=== PATIENT | female | born 1980 | race Two or more races ===

== ENCOUNTER 2024-06-21 12:49 | Emergency (ER) | payer MEDICAID, SELFPAY ==
[2024-06-21 13:46] VITALS: BP 144/90; PULSE 83; RESP 18; TEMP 37.2; O2SAT 99; BMI 36.3
--- NOTE | 2024-06-21 13:50 | XR_ITS ---
Examination: CT abdomen and pelvis without contrast. Coronal 3-D reconstructions. Sagittal 2-D reconstructions. Date and time of exam:June 21, 2024 1500 hours INDICATIONS: Right lower abdominal pain radiating to the back today CTDI: vol (mGy): 10.6 DLP: (mGycm): 605 Technique: Axial images of the abdomen have been obtained, 3 mm slice thickness Intravenous contrast material has not been administered. Low dose protocols were performed. One or more of the following dose reduction techniques were used; automated exposure control, adjustment of the mA and/or KV according to patient size, use of iterative reconstruction technique. Findings: No focal liver or splenic lesions Absent gallbladder No pancreatic or adrenal mass 3 mm upper pole right renal calculus No hydronephrosis or ureteral calculi Normal appendix No bowel obstruction Enlarged uterine body and fundus No bladder mass or bladder calculi IMPRESSION: 3 mm upper pole nonobstructing right renal calculus, no hydronephrosis or ureteral calculi Normal appendix Recommend pelvic sonography to assess enlarged uterine body and fundus
--- NOTE | 2024-06-21 13:51 | PD.EDRME ---
Rapid Medical Screening Exam RME Arrival date/time: 06/21/24 12:49 43-year-old female presents to the emergency department complaints of right flank pain Chief Complaint: Abdominal Pain Time Seen by Provider: 06/21/24 13:30 Vital signs: Vital Signs Temperature 99 F 06/21/24 13:46 Pulse Rate 83 06/21/24 13:46 Respiratory Rate 18 06/21/24 13:46 Blood Pressure 144/90 H 06/21/24 13:46 Pulse Oximetry (%) 99 06/21/24 13:46 Oxygen Delivery Method Room Air 06/21/24 13:46
[2024-06-21 14:22] LABS: Basophils # (Auto) 0.1 Thou/mm3 (0.0-0.2); Basophils % (Auto) 1 % (0-2.5); Eosinophils # (Auto) 0.2 Thou/mm3 (0.0-0.5); Eosinophils % (Auto) 2 % (0-10); Hematocrit 41.1 % (36.0-46.0); Hemoglobin 13.8 g/dL (12.0-16.0); Immature Granulocytes % (Auto) 0 % (0-0); Immature Granulocytes Auto 0.03 Thou/mm3 (0.00-0.00); Lymphocytes # (Auto) 2.4 Thou/mm3 (1.0-4.8); Lymphocytes % (Auto) 33 % (10-50); Mean Corpuscular HGB Conc 33.6 g/dl (31.0-37.0); Mean Corpuscular Hemoglobin 27.7 pg (25.0-35.0); Mean Corpuscular Volume 82 fL (80-100); Monocytes # (Auto) 0.6 Thou/mm3 (0.0-0.8); Monocytes % (Auto) 9 % (0-12); Neutrophils # (Auto) 3.9 Thou/mm3 (1.8-7.7); Neutrophils % (Auto) 55 % (37-80); Nucleated Red Blood Cell % 0 /100 WBC (0); Platelet Count 356 Thou/mm3 (140-440); RDW Standard Deviation 51.1 fL (36.4-46.3); Red Blood Count 4.99 Miln/mm3 (4.00-5.20); White Blood Count 7.2 Thou/mm3 (3.6-11.0)
[2024-06-21 14:25] LABS: Collection Type, Urine Clean Catch
[2024-06-21 14:28] LABS: HCG Qualitative,Urine Negative
[2024-06-21 14:35] LABS: Bilirubin,Urine Negative (Negative); Blood,Urine Trace (Negative); Clarity,Urine Clear (Clear/Hazy); Color,Urine Colorless (Lt Yel-Yel); Culture Indicated,Urine Not Indicated; Glucose, Urine Negative (Negative); Hyaline Casts,Urine < 1 /hpf (0-1); Ketones,Urine Negative (Negative); Leukocyte Esterase,Urine Positive (Negative); Nitrite,Urine Negative (Negative); PH,Urine 6.5 (5.0-7.0); Protein,Urine Negative (Neg - Trace); RBC,Urine 1 /hpf (0-3); Specific Gravity,Urine 1.009 (1.001-1.035); Squamous Epithelial Cell,Urine 6 /hpf (0-5); Urobilinogen,Urine Negative mg/dL (0.0-1.0); WBC,Urine 5 /hpf (0-5)
[2024-06-21 14:39] LABS: Alanine Aminotransferase 21 U/L (10-49); Albumin, Serum 4.6 gm/dL (3.5-5.0); Albumin/Globulin Ratio 1.8 (1.2-2.2); Alkaline Phosphatase 64 U/L (46-116); Anion Gap 11 (7-16); Aspartate Amino Transferase 19 U/L (0-34); BUN/Creatinine Ratio 13 Ratio (12-20); Bilirubin,Total 0.4 mg/dL (0.3-1.2); Blood Urea Nitrogen 9 mg/dL (9-23); Carbon Dioxide 22.5 mMol/L (20.0-31.0); Chloride 106 mMol/L (98-107); Creatinine (Component) 0.7 mg/dL (0.6-1.3); Estimated Creatinine Clearance 99.9 mL/min (>60); Globulin 2.5 gm/dL (2.3-3.5); Glucose 102 mg/dL (74-106); Lipase 26 U/L (12-53); Osmolality,Calculated 276 (275-295); Potassium 3.8 mMol/L (3.4-5.1); Sodium 139 mMol/L (136-145); Total Protein 7.1 gm/dL (5.7-8.2); eGFR > 60 See Note
[2024-06-21 16:16] VITALS: BP 144/92; PULSE 87; RESP 16; TEMP 36.9; O2SAT 99
--- NOTE | 2024-06-21 16:20 | XR_ITS ---
Examination: Abdomen sonogram, Limited Date and time of exam: June 21, 2024 1626 hours INDICATIONS: Right upper abdominal pain beginning 2 weeks ago Technique: Real-time peterson scale transabdominal sonographic images of the upper abdomen obtained. Findings: Gallbladder not visualized Common bile duct 0.4 cm Pancreatic head 1.7 cm Liver 13.9 cm fatty infiltration no focal liver lesions Normal hepatopedal portal venous flow Patent IVC IMPRESSION: Normal common bile duct Fatty liver
--- NOTE | 2024-06-21 16:24 | PD.EDABDPN ---
ED Abdominal Pain RME/HPI General Chief Complaint: Abdominal Pain Stated complaint: RLQ ABD PAIN RADIATES TO BACK Time seen by provider: 06/21/24 13:30 Arrival date/time: 06/21/24 12:49 43 year old female present to emergency room with c/o of RUQ pain radiated to back for 1 week, history of gall bladder removal. LOCATION: RUQ SEVERITY: Symptoms are described as being severe with limitations on activities of daily living QUALITY: Symptoms are described as being cramping CONTEXT: The patient is unable to identify any inciting events. DURATION/TIMING: The symptoms started approximately 7 day ago and have been waxing/waning but always present without ever completely resolving. ASSOCIATED SYMPTOMS: The patient is unable to identify any other associated symptoms. MODIFYING FACTORS: The patient is unable to identify any alleviating or aggravating symptoms. PERTINENT ROS: no fevers, no anorexia, no nausea or vomiting, no diarrhea, no ripping or tearing sensations, no syncope or presyncopal symptoms, denies trauma, denies genital pain, UTI sx REVIEW OF SYSTEMS: See History of Present Illness - with the exception of those mentioned in the history of present illness, all other systems reviewed and reported as negative GENERAL: In general the patient is awake, interactive, in an emergency department gurney. HEAD/EYES/EARS/NOSE/THROAT: normo-cephalic, atraumatic, mucus membranes are moist, anicteric, palpebral conjunctiva is pink, trachea is midline. CARDIOVASCULAR: regular rate and regular rhythm, no murmurs, heart sounds are not distant, strong pulses in all four extremities that are equal and symmetric bilateral upper and lower extremities, normal capillary refill. CHEST/PULMONARY: normal chest rise and fall, good air movement, clear to auscultation bilaterally, normal inspiratory to expiratory ratios without evidence of respiratory distress. NECK: No midline/Paraspinal tenderness, no step off ROM/Strenght intact No Kernig and bruzinski sign. No trauma ABDOMEN: soft, RUQ tenderness no masses appreciated BACK: normal range of motion without pain. NEUROLOGICAL: cranio-facial features are symmetric, moves all four extremities equally without obvious limitations or weakness. EXTREMITY: no tenderness to palpation over the long bones or large joints of the bilateral upper and lower extremities, no joint swelling, no joint erythema, no signs of trauma, no unilateral leg swelling and no peripheral edema. SKIN: warm, dry, well-perfused, no jaundice, no rash, no telangiectasias or petechia. PSYCH: calm, cooperative, no evidence of psychosis or agitation RME / HPI RME / HPI narrative: 06/21/24 12:49 43-year-old female presents to the emergency department complaints of right flank pain Related Data Home Medications ?Medication ?Instructions ?Recorded ?Confirmed lovastatin 10 mg tablet 1 tab PO QDAY 06/04/18 07/13/23 omeprazole 40 mg capsule,delayed 40 mg PO QDAY 03/06/22 07/13/23 release nitrofurantoin 100 mg PO QDAY 07/13/23 07/13/23 monohydrate/macrocrystals 100 mg capsule (Macrobid) Allergies Allergy/AdvReac Type Severity Reaction Status Date / Time No Known Allergies Allergy Verified 06/21/24 12:52 Course Course Course Narrative: Patient?s symptoms not typical for emergent causes of abdominal pain such as, but not limited to, appendicitis, abdominal aortic aneurysm, surgical biliary disease, pancreatitis, SBO, mesenteric ischemia, serious intra-abdominal bacterial illness. Presentation also not typical of gynecologic emergencies such as?TOA, Ovarian Torsion, PID. Not Ectopic. Doubt atypical ACS. Pt tolerating PO. Disposition: Patient will be discharged with strict return precautions and follow up with primary MD within 12-24 hours for further evaluation. Patient understands that this still may have an early presentation of an emergent medical condition such as appendicitis that will require a recheck. Quality Measures none Orders Category Date Time Status CT abdomen pelvis wo con Stat Exams 06/21/24 13:50 Completed US abdomen limited Stat Exams 06/21/24 16:20 Completed CBC Stat Lab 06/21/24 13:58 Completed Comprehensive Metabolic Panel Stat Lab 06/21/24 13:58 Completed HCG Qualitative,Urine Stat Lab 06/21/24 14:03 Completed Lipase Stat Lab 06/21/24 13:58 Completed UA, C/S IF [Urinalysis, C/S if Indicated] Stat Lab 06/21/24 14:03 Completed Reevaluation(s) Reevaluation #1: pain report RUQ, labs are wnl will get US to rule out CBD stone, patient taken IBU prior to arrival Vital Signs Vital signs: Vital Signs Temperature 99 F 06/21/24 13:46 Pulse Rate 83 06/21/24 13:46 Respiratory Rate 18 06/21/24 13:46 Blood Pressure 144/90 H 06/21/24 13:46 Pulse Oximetry (%) 99 06/21/24 13:46 Oxygen Delivery Method Room Air 06/21/24 13:46 Abdominal Pain MDM Patient data External records reviewed:: [facility] previous records Clinical information provided by:: patient Social determinants that could affect healthcare access:: none Patient has the following chronic illnesses:: Gall removal How is presenting disease/condition affected by chronic disease/condition?: no chronic disease Evaluation data The following diagnostics were reviewed and interpreted by me:: lab results and radiology exam(s) Lab and/or radiology exams considered but not ordered:: n/a Interpretation Summary: cbc/cmp/urine wnl US: Gallbladder not visualized Common bile duct 0.4 cm Pancreatic head 1.7 cm Liver 13.9 cm fatty infiltration no focal liver lesions Normal hepatopedal portal venous flow Patent IVC IMPRESSION: Normal common bile duct Fatty liver Medications / Prescriptions Medications or Prescriptions considered but not ordered:: n/a Medication administrations:: n/a Consultations Consultation(s) initiated? (list below): No Diagnosis Differential diagnosis abdominal pain: abdominal pain, calculus of kidney, gastroenteritis, pancreatitis and other (CBD stone ) Most likely diagnosis given after review of the tests above:: abd pain Admission Indicated Admission indicated?: not indicated Admission Request Was there a request for admission?: No Disposition Plan Disposition Plan: Discharge Discharge Attestation Discharge Attestation: The patient and all family members were given an opportunity to ask questions and understood the discharge instructions. Discharge instructions specifically effects, indications for sooner follow up or return to the emergency department, and the expected course of current diagnosis. Patient condition: Stable Discharge Plan Plan Patient Disposition: HOME (Self Care) Health Concerns: Follow with PMD as directed Take tylenol or motrin as need Return to ED if sx worsen Prescriptions/Referrals Prescriptions/Med Rec: No Action omeprazole 40 mg capsule,delayed release(DR/EC) 40 mg PO QDAY nitrofurantoin monohyd/m-cryst [Macrobid] 100 mg capsule 100 mg PO QDAY Rx Instructions: must administer with a meal/food lovastatin 10 mg Tablet 1 tab PO QDAY Referrals: No Primary/Family,Physician [Primary Care Provider] - In 1 week Problem List Clinical Impression: Abdominal pain Patient/Caregiver Discharge Instructions Education Materials: Abdominal Pain Print Language: Syriac Stand Alone Forms: Rachelle Award Info., Patient Portal Info Letter
== END 2024-06-21 18:01 | disposition home or self-care (01) ==
PROVIDERS: Nurse Practitioner Primary Care; Emergency Provider Emergency Medicine
DX: R10.11 Right upper quadrant pain (principal)
CPT/HCPCS: 36415; 74176; 76705; 80053; 81001; 81025; 83690; 85025; 99284

== ENCOUNTER → 2024-07-11 | Outpatient (BNVA) | payer MEDICAID, SELFPAY | END | disposition home or self-care (01) | PROVIDERS: PCP Physician Assistant; Referring Provider Physician Assistant; Visit Provider Urology | DX: N39.0 Urinary tract infection, site not specified (principal); N20.0 Calculus of kidney; E66.9 Obesity, unspecified; Z68.36 Body mass index [BMI] 36.0-36.9, adult; E78.00 Pure hypercholesterolemia, unspecified; K21.9 Gastro-esophageal reflux disease without esophagitis | CPT/HCPCS: 81003; 99212; G0463 ==

== ENCOUNTER → 2024-08-31 | Outpatient (CLI) | payer MEDICAID, SELFPAY ==
--- NOTE | 2024-08-31 09:30 | XR_ITS ---
Examination: Screening digital mammography, bilateral Computer aided detection 3-D breast Tomosynthesis, bilateral Date and time of exam: August 31, 2024 0930 hours Compared to mammograms dating to January 31, 2020 Indication: Screening Technique: Nonmagnified MLO, CC views of the breasts to been obtained, reconstructed from 3-D Tomosynthesis images. R2 computer aided detection program utilized for evaluation of suspicious masses and/or abnormal calcifications. 3-D Tomosynthesis images obtained. Findings: The breasts are heterogeneously dense, which may obscure small masses 16 mm focal asymmetry upper outer left breast Benign calcifications Impression: BI-RADS Category 0: Incomplete: Need additional imaging evaluation Recommend follow-up spot tomographic views of 16 mm focal asymmetry upper outer left breast as well as left breast sonography to complete the workup
== END | disposition home or self-care (01) ==
LOC: CDIM 09:18
PROVIDERS: PCP Physician Assistant; Referring Provider Specialist; Visit Provider Specialist
DX: Z12.31 Encounter for screening mammogram for malignant neoplasm of breast (principal); N64.89 Other specified disorders of breast; R92.8 Other abnormal and inconclusive findings on diagnostic imaging of breast
CPT/HCPCS: 77063; 77067

== ENCOUNTER → 2024-09-09 | Outpatient (CLI) | payer MEDICAID, SELFPAY ==
--- NOTE | 2024-09-09 | XR_ITS ---
Examination: Diagnostic digital mammography, unilateral, left Computer aided detection 3-D breast Tomosynthesis, unilateral Date and time of exam: September 09, 2024 1243 hours INDICATIONS: Mammogram August 31, 2024 16 mm focal asymmetry upper outer left breast Technique: Nonmagnified MLO, CC views of the left breast have been obtained, reconstructed from 3-D Tomosynthesis images. R2 computer aided detection program utilized for evaluation of suspicious masses and/or abnormal calcifications. 3-D Tomosynthesis images obtained. Findings: The breast is heterogeneously dense, which may obscure small masses Spot compression views do not confirm suspicious mass Impression: BI-RADS category 2: Benign findings Return to follow-up mammography
--- NOTE | 2024-09-09 12:01 | XR_ITS ---
Examination: Breast ultrasound, unilateral, left complete Date and time of exam: September 09, 2024 1209 hours INDICATIONS: Mammogram August 31, 2024 16 mm focal asymmetry upper outer left breast, left breast burning sensation one month Technique: Real-time peterson scale ultrasonographic imaging performed left breast including all 4 quadrants as well as nipple retroareolar and axillary region. Findings: No cystic or solid mass IMPRESSION: BI-RADS Category 1: Negative study
== END | disposition home or self-care (01) ==
PROVIDERS: PCP Physician Assistant; Referring Provider Specialist; Visit Provider Specialist
DX: R92.332 Mammographic heterogeneous density, left breast (principal); R92.8 Other abnormal and inconclusive findings on diagnostic imaging of breast
CPT/HCPCS: 76641; 77061; 77065; G0279

== ENCOUNTER 2024-09-13 14:45 | Inpatient (IN) | payer MEDICAID, SELFPAY ==
--- NOTE | 2024-09-11 07:56 | ESHP_ITS ---
RE: DULCE MARIA ISABEL : 1980 DATE OF ADMISSION: 09/13/2024 HISTORY OF PRESENT ILLNESS: This is a 43-year-old 3 para 3 with symptomatic uterine fibroids, who presents for hysterectomy. ALLERGIES: NO KNOWN DRUG ALLERGIES. MEDICATIONS: Atorvastatin 40 mg 1 p.o. daily. PAST MEDICAL HISTORY: Hyperlipidemia, gastroesophageal reflux disease FAMILY MEDICAL HISTORY: Breast cancer. SOCIAL HISTORY: She denies any alcohol, drug use or smoking. She is a Kinyarwanda speaker. PAST SURGICAL HISTORY: Laparoscopic cholecystectomy. OBSTETRIC HISTORY: Three previous full-term normal vaginal deliveries. REVIEW OF SYSTEMS: She denies any chest pain, palpitations, cough, fever, shortness of breath or lower extremity pain. PHYSICAL EXAMINATION: VITAL SIGNS: Blood pressure 110/70, heart rate 88, respirations 18, and temperature is 98.6. HEENT: Oropharynx and sclerae are clear. LUNGS: Clear to auscultation bilaterally. HEART: Regular rate and rhythm. ABDOMEN: Old upper abdominal trocar scars noted. EXTREMITIES: Nontender. SKIN: No gross rashes or lesions. NEUROLOGIC: No focal deficits. ASSESSMENT: Symptomatic uterine fibroids. PLAN: Total abdominal hysterectomy and possible bilateral salpingo- oophorectomy. Informed consent was obtained. The patient was made aware of the risks, complications, alternatives, and benefits of the proposed procedure and she agrees. She is aware of the risk of injury to bowel, bladder, uterus, ureters, adjacent organs, nerve injury to legs and skin, pulmonary embolism, deep vein thrombosis, injury to the vessels of the abdominal wall, hematoma, abscess, wound infection, wound dehiscence, pelvic infection, reoperation to repair injury to internal organs, anesthesia complications, the need for future surgery to remove ovaries, the need to take hormone therapy with its associated risks, uncontrollable loss of urine symptoms, prolapse of the vagina, and the patient is aware that in some cases, a subtotal hysterectomy may need to be performed if severe adhesions of bladder to lower uterine segment and as a result may continue to have somewhat of a menstrual cycle. DT: 07:00:48 TT: 07:54:00 Ref: [id number] - TID: [id number] MTDD
[2024-09-12 07:51] VITALS: BMI 35.6
[2024-09-12 10:51] LABS: Basophils # (Auto) 0.1 Thou/mm3 (0.0-0.2); Basophils % (Auto) 1 % (0-2.5); Eosinophils # (Auto) 0.2 Thou/mm3 (0.0-0.5); Eosinophils % (Auto) 2 % (0-10); Hematocrit 41.9 % (36.0-46.0); Hemoglobin 14.7 g/dL (12.0-16.0); Immature Granulocytes % (Auto) 0 % (0-0); Immature Granulocytes Auto 0.03 Thou/mm3 (0.00-0.00); Lymphocytes # (Auto) 2.2 Thou/mm3 (1.0-4.8); Lymphocytes % (Auto) 28 % (10-50); Mean Corpuscular HGB Conc 35.1 g/dl (31.0-37.0); Mean Corpuscular Hemoglobin 30.6 pg (25.0-35.0); Mean Corpuscular Volume 87 fL (80-100); Monocytes # (Auto) 0.4 Thou/mm3 (0.0-0.8); Monocytes % (Auto) 5 % (0-12); Neutrophils # (Auto) 5.1 Thou/mm3 (1.8-7.7); Neutrophils % (Auto) 65 % (37-80); Nucleated Red Blood Cell % 0 /100 WBC (0); Platelet Count 323 Thou/mm3 (140-440); RDW Standard Deviation 39.8 fL (36.4-46.3); White Blood Count 7.9 Thou/mm3 (3.6-11.0)
[2024-09-12 11:17] LABS: Alanine Aminotransferase 22 U/L (10-49); Albumin, Serum 4.4 gm/dL (3.5-5.0); Albumin/Globulin Ratio 1.9 (1.2-2.2); Alkaline Phosphatase 62 U/L (46-116); Anion Gap 13 (7-16); Aspartate Amino Transferase 18 U/L (0-34); BUN/Creatinine Ratio 10 Ratio (12-20); Beta HCG,Quantitative 1 mIU/mL (<5.0); Bilirubin,Total 0.4 mg/dL (0.3-1.2); Blood Urea Nitrogen 8 mg/dL (9-23); Calcium 9.3 mg/dL (8.3-10.6); Calcium (Corrected) 9.3 mg/dL (8.5-10.1); Carbon Dioxide 21.4 mMol/L (20.0-31.0); Chloride 107 mMol/L (98-107); Creatinine (Component) 0.8 mg/dL (0.6-1.3); Estimated Creatinine Clearance 90.1 mL/min (>60); Globulin 2.3 gm/dL (2.3-3.5); Glucose 93 mg/dL (74-106); Osmolality,Calculated 279 (275-295); Sodium 141 mMol/L (136-145); Total Protein 6.7 gm/dL (5.7-8.2); eGFR > 60 See Note
[2024-09-12 12:45] LABS: INR 0.9 (0.9-1.3); Partial Thromboplastin Time 26.2 Seconds (22.0-36.0); Prothrombin Time 10.2 Seconds (9.0-12.2)
[2024-09-13] VITALS (26 sets, daily range): BP systolic 84–155; BP diastolic 61–99; PULSE 62–91; RESP 14–96; TEMP 36.2–36.9; O2SAT 94–100; BMI 35.8; BMI 25.1
--- NOTE | 2024-09-13 08:53 | PD.GYNPROC ---
Operative Note - ELECTRICAL & INSTRUMENTATION SUPERVISOR Procedure Date of procedure: 09/13/24 Procedure Performed: Subtotal abdominal hysterectomy and bilateral salpingectomy Indication: Symptomatic uterine fibroids Pre-Op diagnosis: Symptomatic uterine fibroids Dysmenorrhea Abnomal uterine bleeding. Post-Op diagnosis: same Anesthesia type: General Procedure description: DESCRIPTION OF PROCEDURE: The risks, benefits, indications, and alternatives of the procedure were reviewed with the patient and informed consent was obtained. She was taken to the operating room with IV running. She received antibiotics prior to the procedure. CLEMENTINA hose and Flowtrons were in place. She was placed in the supine position on the operating room table. She underwent induction of general anesthesia. A Guevara catheter was placed. She was prepped and draped in the usual sterile fashion. A timeout was performed. A Pfannenstiel skin incision was made with a scalpel, carried through the underlying layer of fascia with the Bovie. The fascia was nicked in the midline and the incision extended bilaterally with the Bovie. The inferior aspect of fascial incision was grasped with Nikolay clamps, elevated, and the underlying rectus muscle dissected off with the Bovie. The rectus muscles were in the midline. The peritoneum was identified between 2 Shirley clamps and entered sharply with the Metzenbaum scissors. The incision was extended superiorly and inferiorly with good visualization. The patient was placed in slight Trendelenburg and the O'Markos-O'Cox retractor was placed and the bowel packed away with 3 moist laparotomy pads. The superior and inferior retractors were attached to the O'Markos-O'Cox. The round ligaments on both sides were clamped with the EnSeal X1 large jaw, fulgurated, transected, and hemostasis was achieved. The utero-ovarian ligaments on both sides were then clamped with the EnSeal, fulgurated and transected, and hemostasis was achieved. The anterior leaf of the broad ligament was incised along the bladder reflection at the midline from both sides. The bladder was gently dissected off the lower uterine segment with Metzenbaum scissors and pickups with teeth. This was made difficult due to the size of the uterus. The broad ligaments on both sides were then clamped with the EnSeal X1 large jaw, fulgurated, and transected. Hemostasis was achieved. The uterine arteries then were bilaterally clamped with the EnSeal X1 large jaw, fulgurated, and transected. Hemostasis was achieved. The uterus was amputated at the level of the cervix uterine junction. The cervical stump was suture ligated with a series of figure of eight O vicryl sutures. The fallopian tubes which were grasped with a Celena clamp, fulgurated with the EnSeal X1 large jaw, transected, and hemostasis was achieved. The pelvis was irrigated with warm normal saline solution. The pelvis was observed meticulously for several minutes and no bleeding was noted. The muscle closed with 0 chromic catgut suture in running fashion. The fascia was closed with 0 Vicryl beginning at each angle and ending center in a running fashion. Subcutaneous tissue was irrigated with normal saline solution and closed with 2-0 chromic catgut suture in running fashion. The skin was closed with 4-0 Monocryl. Dermabond Prineo dressing was applied, and then a sterile pressure dressing was applied. She tolerated the procedure well. Counts were correct. I discussed with the patient preoperatively the postoperative plan. All questions were answered. Estimated blood loss (ml): 25 Findings: 14 wk size fibroid uterus Normal appearing ovaries and fallopian tubes. Complications: none Surgical staff Operation Date: 09/13/24 07:30 Case Staff Anesthesiologist: Pedrito Mcqueen RN First Assistant: Enriqueta Booth Diagnosis Problem List Completed Was Problem List Reviewed/Reconciled?: Yes
--- NOTE | 2024-09-13 09:04 | SUR.PHASEI ---
0904: Pt. wakes to name then drifts back to sleep, vitals stable, breathing unlabored, no signs of distress, dressing to lower ABD CDI, no active bleed noted, saini catheter in place draining clear yellow urine, report received from MD Mcqueen and Jewell BURRELL.
[2024-09-13] MEDS: HYDROmorphone INJ 2 MG/ML VIAL 0.4 MG IVP (09:16)
[2024-09-13] MEDS: ONDANSETRON INJ 2 MG/ML INJ 2 ML 4 MG IVP (09:19)
[2024-09-13] MEDS: Morphine Sulfate PF 1 MG/ML PCA VIAL 30 ML 30 MG IV (09:24)
[2024-09-13] MEDS: METOCLOPRAMIDE INJ 5 MG/ML VIAL 2 ML 10 MG IVP (09:48)
--- NOTE | 2024-09-13 11:38 | SUR.PHASEII ---
1138: Report given to Luann BURRELL to care for pt. Pt. AAOx4, vitals stable, breathing unlabored, no complaint of pain or nausea, dressing to lower ABD CDI, no active bleed noted.
--- NOTE | 2024-09-13 12:10 | SUR.PHASEII ---
1210: Received report from Luann BURRELL. No changes to pt. Pt. resting with family at bedside, waiting for a room.
[2024-09-13] MEDS: RINGERS LACTATED 1000 ML 1,000 ML 125 ML IV ×2 (12:52→20:30)
--- NOTE | 2024-09-13 14:30 | SUR.PHASEII ---
1430: Pt. AAOx4, vitals stable, breathing unlabored, no complaint of pain or nausea, dressing to lower ABD CDI, no active bleed noted, saini catheter in place draining clear yellow urine, gave report to Ingrid BURRELL prior to transfer to room 350 Family made aware of transfer to room, pt. transferred with all personal belongings.
[2024-09-13 16:10] LABS: Basophils % (Auto) 0 % (0-2.5); Eosinophils % (Auto) 0 % (0-10); Hemoglobin 14.1 g/dL (12.0-16.0); Immature Granulocytes % (Auto) 0 % (0-0); Immature Granulocytes Auto 0.07 Thou/mm3 (0.00-0.00); Lymphocytes % (Auto) 6 % (10-50); Mean Corpuscular HGB Conc 35.3 g/dl (31.0-37.0); Mean Corpuscular Hemoglobin 31.1 pg (25.0-35.0); Mean Corpuscular Volume 88 fL (80-100); Monocytes # (Auto) 0.1 Thou/mm3 (0.0-0.8); Monocytes % (Auto) 1 % (0-12); Neutrophils # (Auto) 14.6 Thou/mm3 (1.8-7.7); Neutrophils % (Auto) 93 % (37-80); Nucleated Red Blood Cell % 0 /100 WBC (0); Platelet Count 290 Thou/mm3 (140-440); RDW Standard Deviation 39.7 fL (36.4-46.3); Red Blood Count 4.53 Miln/mm3 (4.00-5.20); White Blood Count 15.7 Thou/mm3 (3.6-11.0)
[2024-09-14] VITALS (8 sets, daily range): BP systolic 111–132; BP diastolic 69–86; PULSE 65–89; RESP 16–97; TEMP 36.1–36.8; O2SAT 96–98
[2024-09-14] MEDS: RINGERS LACTATED 1000 ML 1,000 ML 100 ML IV (04:36)
[2024-09-14] MEDS: SIMETHICONE 80 MG CHEW PO ×2 (04:37→13:35)
[2024-09-14] MEDS: HYDROcodone/APAP 5/325 TABLET 1 TAB PO ×2 (04:37→13:35)
--- NOTE | 2024-09-14 06:04 | PC.NURSE ---
Dr. Barger was made aware that SUPERVISOR BRINE pump was running till around 2 am and that the order was on hold since 3 pm on 09/13/24. Per MD it is okay and stated he did not hold or stopped the order. stated that he was expecting pt to be on SUPERVISOR BRINE pump still. asked pt to press on SUPERVISOR BRINE button so he could remove dressing but was unaware that pt was not on agronomy technician.
--- NOTE | 2024-09-14 06:24 | ESPR_ITS ---
RE: DULCE MARIA ISABEL : 1980 DATE OF SERVICE: 09/14/2024 S: Postop day #1, the patient reports crampy abdominal pain and she is not passing flatus, but she is tolerating a regular diet. She has got adequate urine output with a Guevara catheter in place. She denies any chest pain, palpitations, shortness of breath, or lower extremity pain. She denies any vaginal bleeding. She denies any dizziness or lightheadedness. O: VITAL SIGNS: Blood pressure 117/76, heart rate 65, respirations 17, temperature 97.2, and pulse oximetry is 96% on room air. LUNGS: Clear to auscultation bilaterally. HEART: Regular rate and rhythm. ABDOMEN: Mild gaseous distention. Dressing dry and intact. EXTREMITIES: Nontender. LABORATORY DATA: Hemoglobin pre-delivery is 14.7, post-delivery is 14.1. A: 1. Postoperative day #1, status post total abdominal hysterectomy and bilateral salpingectomy. 2. Delayed gastrointestinal motility. P: Discontinue morphine PROVIDER NETWORK MGR. Remove dressing. Discontinue Guevara catheter. Encourage ambulation. Simethicone for gas pain. Possible discharge home tomorrow. I discussed with the patient, her intraoperative findings, and expectation for recovery. All questions answered. DT: :14:28 TT: 06:23:00 Ref: [id number] - TID: [id number]
--- NOTE | 2024-09-14 06:48 | PC.NURSE ---
dressing and saini cath removed as ordered by Dr. Barger.
[2024-09-14] MEDS: DOCUSATE SOD 100 MG CAPSULE PO (08:20)
[2024-09-14] MEDS: ENOXAPARIN SOD INJ 40 MG/0.4 ML SYRINGE SC (08:20)
[2024-09-14] MEDS: KETOROLAC INJ 30 MG/ML VIAL IVP (08:24)
[2024-09-14] MEDS: ONDANSETRON INJ 2 MG/ML INJ 2 ML 4 MG IVP (11:14)
--- NOTE | 2024-09-14 13:43 | PC.SS ---
Patient Miranda Burgos is a 43 Year old female admitted for CELY Poss BSO. SS met with patient at bedside to discuss discharge plan and verify demographic information. Patient reports she lives at home with Family. Surrogate decision maker is her Son, Pawel Burgos [phone]. Patient reports she does not utilize any source of DME to assist with ambulation, Patient is able to complete all ADL's independently. [facility] of pharmacy is [facility]. PCP is Zahra Vásquez. At time of discharge family will provide transportation. Next of kin: Son, Pawel Burgos Discharge Plan: Home
--- NOTE | 2024-09-14 14:35 | PC.SS ---
SS follow up note; Patient had surgery yesterday with Dr. Barger. Patient will discharge home within 1-2 days.
[2024-09-14] MEDS: bisacodyL 5 MG TABEC PO (19:11)
[2024-09-14] MEDS: HYDROcodone/APAP 5/325 TABLET 2 TAB PO (19:11)
[2024-09-15] VITALS: BP 109/72; PULSE 82; RESP 18; TEMP 36.2; O2SAT 96
[2024-09-15] MEDS: HYDROcodone/APAP 5/325 TABLET 2 TAB PO ×2 (01:44→08:22)
[2024-09-15 04:00] VITALS: BP 101/54; PULSE 60; RESP 18; TEMP 36.2; O2SAT 96
[2024-09-15 07:23] VITALS: RESP 18; RESP 97
--- NOTE | 2024-09-15 07:31 | ESPR_ITS ---
RE: DULCE MARIA ISABEL : 1980 DATE OF SERVICE: 09/15/2024 Postop day #2. The patient denies any problem or complaint. She is voiding. She is ambulating. She is tolerating a regular diet. She is passing flatus. She denies any vaginal bleeding. She denies any dizziness or lightheadedness. She denies any chest pain, palpitations, shortness of breath or lower extremity pain. OBJECTIVE: Vital Signs: Blood pressure 101/54, heart rate 60, respirations 18, temperature is 97.1. Lungs: Clear to auscultation bilaterally. Heart: Regular rate and rhythm. Abdomen: Nondistended. Incision clear and intact. Extremities: Nontender. ASSESSMENT: Postoperative day number 2, status post subtotal abdominal hysterectomy, bilateral salpingectomy. PLAN: Discharge home. Discharge instructions given. Follow up in the office in 1 week. DT: 07:21:47 TT: 07:29:00 Ref: [id number] - TID: [id number]
[2024-09-15 08:00] VITALS: BP 119/80; PULSE 82; RESP 18; TEMP 36.1; O2SAT 96
[2024-09-15] MEDS: DOCUSATE SOD 100 MG CAPSULE PO (08:15)
[2024-09-15] MEDS: ENOXAPARIN SOD INJ 40 MG/0.4 ML SYRINGE SC (08:15)
[2024-09-15] MEDS: SIMETHICONE 80 MG CHEW PO (08:17)
--- NOTE | 2024-09-15 10:38 | PC.NURSE ---
pt is discharged, discharge instructions are signed, SUDEEP Mosley
--- NOTE | 2024-09-15 18:59 | ESDS_ITS ---
RE: DULCE MARIA ISABEL : 1980 DATE OF ADMISSION: 09/13/2024 DATE OF DISCHARGE: 09/15/2024 10:55 This is a 43-year-old, who underwent a subtotal abdominal hysterectomy and bilateral salpingectomy on 09/13/2024 for abnormal uterine bleeding, dysmenorrhea, and leiomyomatous uterus. Her surgery was uncomplicated. Her postoperative course was unremarkable. Her hemoglobin after surgery is 14.1. She was discharged home on postoperative day #2. DISCHARGE DIAGNOSES: Symptomatic uterine fibroids, dysmenorrhea, abnormal uterine bleeding, subtotal abdominal hysterectomy and bilateral salpingectomy. DT: 07:24:05 TT: 18:58:00 Ref: [id number] - TID: [id number]
== END 2024-09-15 10:55 | disposition home or self-care (01) | DRG 519 ==
LOC: S3NX 15:01
PROVIDERS: Admitting Provider Specialist; PCP Physician Assistant; Referring Provider Specialist; Visit Provider Specialist
PROC: 0UT90ZZ Resection of Uterus, Open Approach (ICD-10-PCS; principal; 2024-09-13 07:30)
DX: D25.9 Leiomyoma of uterus, unspecified (principal); N94.6 Dysmenorrhea, unspecified; K21.9 Gastro-esophageal reflux disease without esophagitis; E78.5 Hyperlipidemia, unspecified; Z90.49 Acquired absence of other specified parts of digestive tract
CPT/HCPCS: 36415; 80053; 84702; 85025; 85610; 85730; 86850; 86900; 86901; 93225; A4217; A4314; A4649; J0690; J1100; J1171; J1650; J1885; J2250; J2270; J2405; J2704; J2765; J3010; J3490; J7120; A9270

== ENCOUNTER 2024-10-13 06:55 | Day surgery (SDC) | payer MEDICAID, SELFPAY ==
[2024-10-10 10:55] VITALS: BMI 36.6
[2024-10-10 12:32] LABS: Basophils # (Auto) 0.1 Thou/mm3 (0.0-0.2); Basophils % (Auto) 1 % (0-2.5); Eosinophils # (Auto) 0.2 Thou/mm3 (0.0-0.5); Eosinophils % (Auto) 4 % (0-10); Hematocrit 43.5 % (36.0-46.0); Hemoglobin 15.0 g/dL (12.0-16.0); Immature Granulocytes Auto 0.02 Thou/mm3 (0.00-0.00); Lymphocytes # (Auto) 2.2 Thou/mm3 (1.0-4.8); Lymphocytes % (Auto) 36 % (10-50); Mean Corpuscular HGB Conc 34.5 g/dl (31.0-37.0); Mean Corpuscular Hemoglobin 30.6 pg (25.0-35.0); Mean Corpuscular Volume 89 fL (80-100); Monocytes # (Auto) 0.4 Thou/mm3 (0.0-0.8); Monocytes % (Auto) 7 % (0-12); Neutrophils # (Auto) 3.2 Thou/mm3 (1.8-7.7); Neutrophils % (Auto) 52 % (37-80); Nucleated Red Blood Cell # 0.00 Thou/mm3 (0.00-0.00); Nucleated Red Blood Cell % 0 /100 WBC (0); Platelet Count 293 Thou/mm3 (140-440); RDW Standard Deviation 38.9 fL (36.4-46.3); Red Blood Count 4.90 Miln/mm3 (4.00-5.20); White Blood Count 6.1 Thou/mm3 (3.6-11.0)
[2024-10-10 12:36] LABS: Anion Gap 10 (7-16); BUN/Creatinine Ratio 10 Ratio (12-20); Blood Urea Nitrogen 8 mg/dL (9-23); Calcium 9.8 mg/dL (8.3-10.6); Carbon Dioxide 25.3 mMol/L (20.0-31.0); Chloride 107 mMol/L (98-107); Creatinine (Component) 0.8 mg/dL (0.6-1.3); Estimated Creatinine Clearance 87.8 mL/min (>60); Glucose 100 mg/dL (74-106); Osmolality,Calculated 281 (275-295); Potassium 4.0 mMol/L (3.4-5.1); Sodium 142 mMol/L (136-145); eGFR > 60 See Note
--- NOTE | 2024-10-12 14:07 | SUR.PREOP ---
Pt notified to come in at 0700 tomorrow.
[2024-10-13 07:25] VITALS: BP 115/80; PULSE 85; RESP 18; TEMP 37.1; O2SAT 95; BMI 36.6
[2024-10-13] MEDS: RINGERS LACTATED 1000 ML 1,000 ML 20 ML IV (07:25)
[2024-10-13 08:38] VITALS: BP 111/70; PULSE 91; RESP 22; TEMP 36.3; O2SAT 95
--- NOTE | 2024-10-13 08:38 | SUR.PHASEII ---
pt received from OR in recovery bay 5. pt awake and alert, breathing unlabored on room air. v/s stable. pt dressing to right shoulder dermabond x1 cdi. report received from Joselo KENYON and Gerard Hicks.
--- NOTE | 2024-10-13 08:38 | ESOP_ITS ---
Date of Procedure 10/13/24 Pre Op Diagnosis Recurrent right shoulder mass Post Op Diagnosis Right shoulder subfascial soft tissue mass Procedure Excision of subfascial soft tissue mass from right shoulder Findings An approximately 3 cm lipomatous subfascial soft tissue mass from right shoulder Procedure Description Patient brought into the operating room supine position. After administration of monitored anesthesia care, patient's right shoulder prepped and draped in standard surgical manner. Local anesthesia administered over her previous scar. An approximately 4 cm elliptical incision was made around her previous scar and dissection was deepened into soft tissue. The mass was palpated noted to be subfascial. The fascia was excised and underlying mass was excised. The mass was lipomatous in nature, approximately 3 cm in diameter. The wound was washed and irrigated and hemostasis achieved using electrocautery. Fascia sangita pproximated with interrupted sutures using 2-0 Vicryl. Subcutaneous tissue closed with interrupted sutures using 3-0 Vicryl and the incision was closed with 4-0 Monocryl in subcuticular fashion. Dermabond applied. Patient tolerated the procedure well. She was breathing spontaneously and without difficulty and was transferred to postanesthesia care in stable condition. Instruments, needles and sponge counts were reported to be correct x 2. Anesthesia MAC and local Pathology / specimen Other (Right shoulder soft tissue mass) Estimated Blood Loss 2 Condition Stable Disposition PACU Surgeon Candi Lopez MD Surgical Staff Operation Date: 10/13/24 09:00 Case Staff MAINTENANCE APPRENTICE: Andrew Boateng RN First Assistant: Gladys Ram
[2024-10-13 08:45] VITALS: BP 116/75; PULSE 88; RESP 21; TEMP 36.3; O2SAT 97
[2024-10-13 08:50] VITALS: BP 116/79; PULSE 87; RESP 21; TEMP 36.3; O2SAT 97
[2024-10-13 08:55] VITALS: BP 112/84; PULSE 85; RESP 17; TEMP 36.3; O2SAT 96
--- NOTE | 2024-10-13 08:56 | SUR.PHASEII ---
pt able to tolerate oral fluids without difficulty swallowing or nausea/vomiting.
[2024-10-13 09:10] VITALS: BP 100/71; PULSE 78; RESP 19; TEMP 36.2; O2SAT 95
--- NOTE | 2024-10-13 09:35 | SUR.PHASEII ---
pt awake and alert, breathing unlabored on room air. v/s stable. pt dressing to right shoulder cdi. pt able to ambulate to wheelchair with steady gait. d/c instructions given with carlos Jerome in room using [employer], all questions answered. pt d/c via wheelchair with all belongings.
== END 2024-10-13 09:35 | disposition home or self-care (01) ==
PROVIDERS: PCP Physician Assistant; Referring Provider Surgery; Visit Provider Surgery
PROC: (CPT 23076; principal; 2024-10-13 08:45)
DX: D17.21 Benign lipomatous neoplasm of skin and subcutaneous tissue of right arm (principal)
CPT/HCPCS: 23076; 36415; 80048; 84703; 85025; A4217; A4649; J2250; J2704; J3010; J7120

== ENCOUNTER 2025-02-16 09:59 | Emergency (ER) | payer MEDICAID, SELFPAY ==
[2025-02-16 10:00] VITALS: BMI 34.0
[2025-02-16 10:09] VITALS: BP 149/100; PULSE 81; RESP 19; TEMP 36.9; O2SAT 98
--- NOTE | 2025-02-16 10:17 | EDNOTE_ITS ---
Upper Respiratory Inf. RME/HPI General Chief Complaint: Flu Like Symptoms Stated Complaint: NECKPAIN, THROAT PAIN AND HEADACHE X1MO Time Seen by Provider: 02/16/25 10:17 Arrival date/time: 02/16/25 09:59 44-year-old female presents to the Emergency Department today for complaints of bilateral ear pain nasal discharge generalized bodyaches. Patient reports that she has had throat pain and ear pain ongoing x 1 month patient reports she has seen her ENT specialist as well as a PCP patient reports symptoms persist Limitations: no limitations Related Data Home Medications ?Medication ?Instructions ?Recorded ?Confirmed lovastatin 40 mg tablet 40 mg PO QDAY 09/12/2410/10 nitrofurantoin 100 mg PO DAILY 10/10/24 monohydrate/macrocrystals 100 mg capsule Previous Rx's ?Medication ?Instructions ?Recorded ibuprofen 600 mg tablet 600 mg PO Q8H PRN pain (scal e 10/13/24 score 4-6) #15 tabs cetirizine 10 mg capsule (Zyrtec) 10 mg PO QDAY PRN al lergy symptoms 02/16/25 #30 caps ibuprofen 800 mg tablet 800 mg PO TID PRN pain #30 t abs 02/16/25 Allergies Allergy/AdvReac Type Severity Reaction Status Date / Time No Known Allergies Allergy Verified 02/16/25 10:03 Review of Systems Review of Systems Systems Reviewed: All systems reviewed, normal except as documented Constitutional Constitutional: Reports system reviewed and no additional complaints, except as documented, Denies fever(s) and Denies headache(s) Eyes Eyes: Reports system reviewed and no additional complaints, except as documented and Denies blurry vision ENT Ears, Nose, Mouth, and Throat: Reports system reviewed and no additional complaints, except as documented, Denies headache(s), Denies nasal congestion and Denies nasal discharge Cardiovascular Cardiovascular: Reports system reviewed and no additional complaints, except as documented, Denies chest pain and Denies dyspnea Respiratory Respiratory: Reports system reviewed and no additional complaints, except as documented, Reports chest congestion, Reports cough and Denies dyspnea Gastrointestinal Gastrointestinal: Reports system reviewed and no additional complaints, except as documented and Denies abdominal pain Integumentary/Breasts Skin/Breast: Reports system reviewed and no additional complaints, except as documented and Denies rash Neurologic Neurologic: Reports system reviewed and no additional complaints, except as documented, Reports as per HPI and Denies headache(s) Past Medical History Past Medical History NEUROLOGIC: Positive Seizures; Negative Neurological Disorders CARDIAC: Positive Cardiac Disorders and Hypercholesterolemia; Negative Congestive Heart Failure RESPIRATORY: Negative Chronic Obstructive Pulmonary Disease (COPD) GASTROINTESTINAL: Positive Gastrointestinal Disorders, Hiatal Hernia, Gastroesophageal Reflux Disease and Obesity; Negative Hepatitis GENITOURINARY: Positive Genitourinary Disorders (CHRONIC UTI. 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.); Negative Renal Disease REPRODUCTIVE: Positive Previous Pregnancies; Negative Breast Cancer, Endometriosis or Pelvic Inflammatory Disease MUSCULOSKELETAL: Negative Musculoskeletal Disorders ENDOCRINE: Negative Endocrine Disorders, Diabetes Mellitus Type 1 or Diabetes Mellitus Type 2 HEMATOLOGIC: Positive Blood Disorders and Anemia PSYCHO/SOCIAL: Positive Anxiety (NO MEDS) OTHER HISTORY: Positive Measles; Negative Hospitalization, Autoimmune Disease, Shingles, Falls, Blood Transfusions, Blood Transfusion Reaction, Anesthesia Reactions, Chemotherapy, Radiation Therapy, MRSA, Chicken Pox, Mumps, Cancer, Breast Cancer or Cervical Cancer Family History FAMILY HISTORY: Positive Family Gastrointestinal Problems and Family Surgery; Negative Family Psychiatric Problems, Family Respiratory Disorders, Family Cardiac Disorders, Family Cancer or Family Anesthesia Reaction Surgical History SURGICAL: Positive Abdominal Surgery and Hysterectomy (a month ago); Negative Cardiac Surgery, Ear Surgery, Tympanostomy Tube, Tubal Ligation or Section Social History SMOKING STATUS: Never smoker SECOND HAND EXPOSURE: No ED Exam General Limitations: Present no limitations General appearance: Present alert and in no apparent distress Head Head exam: Present atraumatic Eye Eye exam: Present normal appearance, PERRL and EOMI ENT ENT exam: Present normal exam, normal oropharynx and mucous membranes moist Neck Neck exam: Present normal inspection, full ROM and trachea midline Chest Chest inspection: Present normal inspection and symmetric chest wall rise Respiratory Respiratory exam: Present normal lung sounds bilaterally Cardiovascular Cardiovascular exam: Present regular rate, normal rhythm and normal heart sounds Abdominal Exam Abdominal exam: Present soft and normal bowel sounds Extremities Exam Extremities exam: Present normal inspection and full ROM Back Exam Back exam: Present normal inspection and full ROM Neurological Exam Neurological exam: Present alert, oriented X3 and CN II-XII intact Psychiatric Psychiatric exam: Present normal affect and normal mood Skin Skin exam: Present warm, dry, intact and normal color Course Quality Measures none Orders Category Date Time Status Dexamethasone Inj [Decadron Inj] Med 02/16/25 10:19 Discontinued 10 mg IM X1 ONE Vital Signs Vital signs: Vital Signs Temperature 98.5 F 02/16/25 10:09 Pulse Rate 81 11/20/25 10:09 Respiratory Rate 19 02/16/25 10:09 Blood Pressure 149/100 H 02/16/25 10:09 Pulse Oximetry (%) 98 02/16/25 10:09 Oxygen Delivery Method Room Air 02/16/25 10:09 O2 saturation 98% room air within normal limits Upper Respiratory Infection MDM Narrative MDM Narrative:: 44-year-old female presents to the Emergency Department today for complaints of bilateral ear pain nasal discharge generalized bodyaches. Patient reports that she has had throat pain and ear pain ongoing x 1 month patient reports she has seen her ENT specialist as well as a PCP patient reports symptoms persist Clinically patient well-appearing does not appear ill or toxic no acute distress Symptoms consistent with allergic rhinitis and allergy type symptoms ENT exam is normal Patient reports no headache no chest pain no shortness of breath Patient discharged home in no distress to follow-up with primary care doctor in the next 24 to 48 hours and for any worsening symptoms to return to the ER immediately Patient data External records reviewed:: [facility] previous records Clinical information provided by:: patient Social determinants that could affect healthcare access:: none Patient has the following chronic illnesses:: History How is presenting disease/condition affected by chronic disease/condition?: uneffected by Evaluation data The following diagnostics were reviewed and interpreted by me:: other (specify) (N/A) Lab and/or radiology exams considered but not ordered:: Considered not indicated Interpretation Summary: N/A Medications / Prescriptions Medications or Prescriptions considered but not ordered:: Given Medication administrations:: Medication Administration History Discontinued Medications Dexamethasone Sodium Phosphate (Dexamethasone Sod Phos Inj 10 Mg/Ml Vial) 10 mg IM X1 ONE Stop: 02/16/25 10:20 Last Admin: 02/16/25 10:37 Dose: 10 mg Documented By: OA Given Consultations Consultation(s) initiated? (list below): No Diagnosis Upper Respiratory Differential Diagnosis: upper respiratory infection, otitis media, sinusitis and viral infection Most likely diagnosis given after review of the tests above:: Allergic rhinitis Admission Indicated Admission indicated?: not indicated Admission Request Was there a request for admission?: No Disposition Plan Disposition Plan: Discharge Discharge Attestation Discharge Attestation: The patient and all family members were given an opportunity to ask questions and understood the discharge instructions. Discharge instructions specifically effects, indications for sooner follow up or return to the emergency department, and the expected course of current diagnosis. Patient condition: Stable Discharge Plan Plan Patient Disposition: HOME (Self Care) Discharge Disposition comment: Stable Prescriptions/Referrals Prescriptions/Med Rec: New ibuprofen 800 mg tablet 800 mg PO TID PRN (Reason: pain) Qty: 30 0RF Zyrtec 10 mg capsule 10 mg PO QDAY PRN (Reason: allergy symptoms) Qty: 30 0RF No Action nitrofurantoin monohyd/m-cryst 100 mg capsule 100 mg PO DAILY Patient Comments: TOME 1 C PSULA POR V A ORAL TODOS LOS D ibuprofen 600 mg tablet 600 mg PO Q8H PRN (Reason: pain (scale score 4-6)) Qty: 15 0RF lovastatin 40 mg tablet 40 mg PO QDAY Problem List Clinical Impression: Allergic rhinitis Patient/Caregiver Discharge Instructions Education Materials: Anatomy Nasal Additional Instructions: Please follow up with your primary care doctor in the next 24-48hrs for any worsening symptoms return here immediately Print Language: Mongolian Stand Alone Forms: Rachelle Award Info., Work/School Release, Patient Portal Info Letter PA/AIR BRUSH DECORATOR Supervising Physician PA/AIR BRUSH DECORATOR Supervising Physician: Dr. gonsalez
[2025-02-16] MEDS: DEXAMETHASONE SOD PHOS INJ 10 MG/ML VIAL IM (10:37)
== END 2025-02-16 11:24 | disposition home or self-care (01) ==
LOC: SERX 10:43
PROVIDERS: Emergency Provider Nurse Practitioner Primary Care
DX: J30.9 Allergic rhinitis, unspecified (principal)
CPT/HCPCS: 96372; 99282; J1100